=== PATIENT | female | born 1985 ===

== ENCOUNTER 2018-05-09 19:45 | Inpatient (IN) | payer MEDICAID ==
[2018-05-09 20:28] VITALS: BMI 41.8
[2018-05-09] MEDS ORDERED: Lactated Ringer's 1,000 ML IV ONE (20:37)
[2018-05-09] MEDS ORDERED: Oxytocin 30 UNIT 30 UNITS/500 ML BAG IV ONE (20:42)
[2018-05-09 21:50] LABS: BASO % 0.4 % (0.0-2.0); EOS # 0.1 K/uL (0.0-0.7); EOS % 0.6 % (0.0-4.0); HEMOGLOBIN 12.8 g/dL (12.0-16.0); LYMPH # 1.8 K/uL (1.0-4.3); LYMPH % 19.8 % (20.0-40.0); MEAN CELL VOLUME 87.1 fl (81.0-99.0); MEAN CORPUSCULAR HEMOGLOBIN 28.8 pg (27.0-31.0); MEAN CORPUSCULAR HGB CONC 33.1 g/dL (33.0-37.0); MEAN PLATELET VOLUME 11.2 fl (7.2-11.7); MONO # 0.6 K/uL (0.0-0.8); MONO % 6.5 % (0.0-10.0); NEUT # 6.8 K/uL (1.8-7.0); NEUT % 72.7 % (50.0-75.0); NRBC % 0.1 % (0.0-0.0); RBC 4.44 Mil/uL (3.80-5.20); RED CELL DISTRIBUTION WIDTH 14.6 % (11.5-14.5); WHITE BLOOD COUNT 9.3 K/uL (4.8-10.8)
[2018-05-09] MEDS ORDERED: Penicillin G 5 Million Unit Vial IVPB ONE (22:01)
[2018-05-09] MEDS: Lactated Ringer's 1,000 ML IV ONE (22:14)
[2018-05-09 23:50] LABS: PROTHROMBIN TIME 11.3 Seconds (9.8-13.1)
[2018-05-09 23:52] LABS: ALB/GLOB RATIO 0.9 (1.0-2.1); ALT/SGPT 34 U/L (9-52); AST/SGOT 47 U/L (14-36); BLOOD UREA NITROGEN 6 mg/dl (7-17); CALCIUM 9.5 mg/dL (8.4-10.2); GFR NON-AFRICAN AMERICAN > 60
[2018-05-09 23:53] LABS: PARTIAL THROMBOPLASTIN TIME 27.6 Seconds (25.6-37.1)
[2018-05-10] MEDS ORDERED: Penicillin G 5 Million Unit Vial IVPB ONE (02:10)
[2018-05-10] MEDS: Lactated Ringer's 1,000 ML IV ONE ×4 (07:47→19:19)
--- NOTE | 2018-05-10 11:22 | OBPN ---
Datetime: 05/10/2018 11:17 IP Procedures: Sterile Vag Exam IP Progress Plan: Continue present management; Augmentation; Anesthesia consult Contraction Comments Provider: irregular FHR - Baseline A Provider: 150s IP Progress Note Comment: Pt requesting epidural. Contact anesthesia. Plan to start pitocin augmen tation. FHT category I. Discussed plan with patient and all patient questions answered. Vital Signs Provider: Reviewed; Within Normal Limits FHR Category Provider Fetus A: Category I NICHD Variability Prov Fetus A: Moderate 6-25bpm Dilatation, Provider: 2 Effacement, Provider: 50 Station, Provider: -1 NICHD Decel Fetus A IP Provider: None Datetime: 05/09/2018 20:44 Presentation-Admit: Vertex NICHD Accel Fetus A IP Provider: [id number]
[2018-05-10] MEDS ORDERED: Fentanyl/Bupivacaine HCl 250 ML EPI ONE (11:28)
--- NOTE | 2018-05-10 17:09 | OBPN ---
Datetime: 05/10/2018 17:03 IP Procedures: Sterile Vag Exam IP Progress Plan: Augmentation Contraction Comments Provider: q2-3min FHR - Baseline A Provider: 150s IP Progress Note Comment: Pt without complaints. Start pitocin augmentation. FHT category I Discussed plan with patient and all patient questions answered. Vital Signs Provider: Reviewed; Within Normal Limits FHR Category Provider Fetus A: Category I NICHD Variability Prov Fetus A: Moderate 6-25bpm Dilatation, Provider: 6 Effacement, Provider: 100 Station, Provider: 0 NICHD Decel Fetus A IP Provider: None
[2018-05-10] MEDS ORDERED: Oxytocin 30 UNIT 30 UNITS/500 ML BAG IV ONE (17:20)
[2018-05-10] MEDS ORDERED: Lidocaine 1% Inj (20ml) ONE (18:46)
--- NOTE | 2018-05-10 20:41 | OBPN ---
Datetime: 05/10/2018 20:38 IP Procedures: Sterile Vag Exam IP Progress Plan: Continue present management; Augmentation Contraction Comments Provider: q2-3min FHR - Baseline A Provider: 150s IP Progress Note Comment: Patient without complaints. heart tracing with moderate baseline variability, short variable decelerations with good rec overy Plan to continue current management. Discussed plan with patient and all patient questions answered. Vital Signs Provider: Reviewed; Within Normal Limits NICHD Variability Prov Fetus A: Moderate 6-25bpm Dilatation, Provider: 6-7 Effacement, Provider: 100 Station, Provider: 0 NICHD Decel Fetus A IP Provider: Variable
[2018-05-10] MEDS ORDERED: Bupivacaine HCl 0.5% PF (30 ml) Inj ONE (21:46)
[2018-05-10] MEDS ORDERED: ceFAZolin IV 2 gm in Dextrose 2 GM/50 ML BAG IVPB ONE (22:40)
[2018-05-10] MEDS ORDERED: ePHEDrine 50 mg/ml Inj ONE (22:51)
[2018-05-10] MEDS ORDERED: Morphine 1 mg/ml preservative-free Inj(Duramorph) ONE (22:51)
[2018-05-10] MEDS ORDERED: Sodium Chloride 0.9% 10 ML IV ONE (22:51)
--- NOTE | 2018-05-10 22:58 | OBPN ---
Datetime: 05/10/2018 22:39 IP Progress Impression: Arrest of dilatation/descent IP Informed Consent Obtain: Section Delivery; Risks, Benefits and Alternatives Discussed IP Procedures: Sterile Vag Exam IP Progress Plan: Deliver- Section Contraction Comments Provider: q2-3min FHR - Baseline A Provider: 150s IP Progress Note Comment: Patient without complaints. Patient with arrest of dilatation. Seen with moderate baseline variability, small variable deceler ations with good recovery. Discussed options with patient and recommended delivery due to arrest of dilatation. Aft er discussion of risks, benefits, alternatives of procedure, patient consented for delivery . Anesthesia notified. Vital Signs Provider: Reviewed; Within Normal Limits NICHD Variability Prov Fetus A: Moderate 6-25bpm Dilatation, Provider: 6-7 Effacement, Provider: 100 Station, Provider: 0 NICHD Decel Fetus A IP Provider: Variable
[2018-05-10] MEDS ORDERED: Propofol 10 mg/ml Inj (20 ML) ONE (23:23)
[2018-05-10] MEDS ORDERED: Succinylcholine 200 mg/10 ml Inj IV ONE (23:25)
[2018-05-11] MEDS: OXYTOCIN/0.9 % NS 20 UNIT/1,000 ML BAG IV SCH ×2 (00:06→00:07)
[2018-05-11] MEDS ORDERED: Oxycodone/Acetaminophen 5/325 mg Tab PO PRN ×3 (00:21→04:17)
[2018-05-11] MEDS ORDERED: Lactated Ringer's 1,000 ML IV ONE ×2 (00:23→04:17)
[2018-05-11] MEDS ORDERED: Simethicone 80 mg Chewtab PO SCH (04:00)
[2018-05-11] MEDS ORDERED: OXYTOCIN/0.9 % NS 20 UNIT/1,000 ML BAG IV SCH (04:17)
[2018-05-11 06:26] LABS: HEMOGLOBIN 10.7 g/dL (12.0-16.0); MEAN CELL VOLUME 88.2 fl (81.0-99.0); MEAN CORPUSCULAR HGB CONC 32.9 g/dL (33.0-37.0); RBC 3.69 Mil/uL (3.80-5.20); RED CELL DISTRIBUTION WIDTH 14.4 % (11.5-14.5)
[2018-05-11] MEDS ORDERED: Enoxaparin 40 mg Syringe SC SCH ×2 (09:00)
[2018-05-11] MEDS ORDERED: Multivitamin With Minerals Tab PO SCH (09:00)
[2018-05-11] MEDS: Simethicone 80 mg Chewtab PO SCH ×3 (09:21→22:11)
[2018-05-11] MEDS: Multivitamin With Minerals Tab PO SCH (09:21)
[2018-05-11] MEDS: Enoxaparin 60 mg Syringe SC SCH (09:21)
[2018-05-11] MEDS: Oxycodone/Acetaminophen 5/325 mg Tab PO PRN ×2 (12:50→22:12)
[2018-05-12] MEDS: Simethicone 80 mg Chewtab PO SCH ×5 (04:30→21:14)
[2018-05-12] MEDS: Multivitamin With Minerals Tab PO SCH (09:25)
[2018-05-12] MEDS: Enoxaparin 60 mg Syringe SC SCH (09:26)
[2018-05-12] MEDS: Oxycodone/Acetaminophen 5/325 mg Tab PO PRN (14:50)
[2018-05-13] MEDS: Simethicone 80 mg Chewtab PO SCH ×2 (05:25→09:11)
[2018-05-13] MEDS: Oxycodone/Acetaminophen 5/325 mg Tab PO PRN (07:53)
[2018-05-13] MEDS: Enoxaparin 60 mg Syringe SC SCH (09:11)
[2018-05-13] MEDS: Multivitamin With Minerals Tab PO SCH (09:11)
--- NOTE | 2018-05-13 09:54 | OBPPN ---
Datetime: 05/12/2018 09:52 PP Pain Prov: Within normal limits PP Nausea Prov: Denies PP Flatus Prov: Yes PP Breasts Prov: Normal PP Heart Prov: Normal PP Lungs Prov: Normal PP Abdomen/Uterus Prov: Normal PP Lochia Prov: Normal PP Vulva/Perineum Prov: Normal PP CVA Tenderness Prov: Normal PP Extremities Prov: Normal PP Comments Phys Exam Prov: Incision clean, dry, intact. Abdomen soft, nontender, nondistended Uterus firm, below umbilicus No deep calf tenderness bilaterally. PP Impression Prov: Normal progression PP Plan Prov: Continue present management PP Progress Note Prov: Postoperative day #2 status post , patient recovering well Continue current management. Anticipate discharge home tomorrow IP PP Procedures: None Vital Signs Provider PP: Reviewed; Within Normal Limits
--- NOTE | 2018-05-13 10:02 | OBDS ---
DELIVERY PERSONNEL Delivery Doctor: Torrey Jose MD Director Employee Safety And Health: Layo Chavarria Anesthesiologist: Torrey Pina MD Resident: Dr. Boo PGY1 MATERNAL INFORMATION Delivery Anesthesia: Spinal Medications in Delivery: Pitocin 30 units in 500 mls, Pitocin 20 units in 1000 mls Estimated Blood Loss (ml): 800 Placenta Cultured: Yes Maternal Complications: None RN Comments: Compound presentation, left arm Provider Comments: Primary low flap transverse section via Pfannenstiel incision. Patient delivered viable with Apgars of 8 and 9 at one and 5 minutes respectively. Normal u terus, normal tubes and ovaries bilaterally. Estimated blood loss 800 mL Fluids 1200 mL lactated Ringer's Urine output 600 mL of clear urine No complications. LABOR SUMMARY EDC: 05/07/2018 00:00 No. Babies in Womb: 1 Attempted: No Labor Anesthesia: Epidural LABOR INFORMATION Reason for Induction: Postterm Onset of Labor: 05/10/2018 17:00 Cervical Ripening Agents: Cervidil Other Ripening Agents: Pt tolerated well. Oxytocin: Induction Group B Beta Strep: Positive Antibiotics # of Doses: 5 Antibiotics Time of Last Dose: 1900 Steroids Given: None Reason Steroids Not Administered: Not Applicable MEMBRANES Membranes Rupture Method: Artificial Rupture of Membranes: 05/10/2018 13:00 Length of Rupture (hrs): 10.43 Amniotic Fluid Color: Clear Amniotic Fluid Amount: Moderate Amniotic Fluid Odor: Normal STAGES OF LABOR Stage 3 hrs: 0 Stage 3 min: 1 Total Time in Labor hrs: 6 Total Time in Labor min: 27 CSECTION DELIVERY Primary Indication: Arrest of Dilatation CSection Urgency: Non Elective CSection Incidence: Primary Labor: Labor Elective: Nonelective CSection Incision: Lower Uterine Transverse BABY A INFORMATION Delivery Date/Time: 05/10/2018 23:26 Method of Delivery: Born in Route : No : N/A Forceps: N/A Vacuum Extraction: N/A Shoulder Dystocia : No SHOULDER DYSTOCIA BABY A Infant Delivery Date/Time: 05/10/2018 23:26 PRESENTATION/POSITION BABY A Presentation: Cephalic Cephalic Presentation: Vertex Breech Presentation: N/A PLACENTA INFORMATION BABY A Placenta Delivery Time : 05/10/2018 23:27 Placenta Method of Delivery: Manual Removal Placenta Status: Delivered SCORES BABY A Heart Rate 1 min: >100 bpm Resp Effort 1 min: Good Cry Reflex Irritability 1 min: Cough or Sneeze or Pulls Away Muscle Tone 1 min: Active Motion Color 1 min: Blue/Pale Resuscitation Effort 1 min: Tactile Stimulation SCORE 1 MIN: 8 Heart Rate 5 min: >100 bpm Resp Effort 5 min: Good Cry Reflex Irritability 5 min: Cough or Sneeze or Pulls Away Muscle Tone 5 min: Active Motion Color 5 min: Body [place], Extremities Blue Resuscitation Effort 5 min: N/A SCORE 5 MIN: 9 INFORMATION BABY A Gestational Age at Delivery: 40.3 Gestational Status: Post-term Outcome : Liveborn Condition : Stable Sex: Male IDENTIFICATION/MEDS BABY A ID Band Number: [id number] ID Band Location: Left Leg; Left Arm WEIGHT/LENGTH BABY A Infant Birthweight (gms): 4190 Weight (lb): 9 Weight (oz): 4 CORD INFORMATION BABY A No. Cord Vessels: 3 Nuchal Cord : N/A True Knot: 1 Cord Blood Taken: Yes Suction: Mouth; Nose ASSESSMENT BABY A Infant Complications: Multiple Variable Decels Physical Findings at Delivery: Within Normal Limits Infant Respirations: Appears Normal Estimator/ALS Called : No Transferred To: [facility]
--- NOTE | 2018-05-13 13:00 | OBPPN ---
Datetime: 05/13/2018 12:59 PP Pain Prov: Within normal limits PP Nausea Prov: Denies PP Flatus Prov: Yes PP Breasts Prov: Not Done PP Heart Prov: Not Done PP Lungs Prov: Not Done PP Abdomen/Uterus Prov: Normal PP Lochia Prov: Not Done PP CVA Tenderness Prov: Not Done PP Extremities Prov: Normal PP C/S Incision Prov: Normal PP Impression Prov: Normal progression PP Plan Prov: Discharge PP Progress Note Prov: Patient cleared for discharge Vital Signs Provider PP: Reviewed
--- NOTE | 2018-05-13 13:00 | OBDCSUM ---
Datetime: 05/13/2018 10:28 Discharged to, Provider: Home Follow up at, Provider: Doctor Disch Instr Activity: Normal activity Disch Instr Diet: Regular Discharge Instructions, Provider: Routine instructions given Discharge Diagnosis, Provider: Term Delivered Follow up in weeks, Provider: 1 week Disch Referrals: None Contraception discussed, Prov: Yes Disch Activity Restrictions: No exercising; No sexual activity; Nothing in vagina - [place], ronda love
[2018-05-13 18:20] VITALS: BP 112/71; PULSE 91; RESP 20; TEMP 98.7; O2SAT 99
--- NOTE | 2018-05-13 21:54 | OP ---
PROCEDURE DATE: 05/10/2018 PREOPERATIVE DIAGNOSIS: Arrest of dilation in active labor. POSTOPERATIVE DIAGNOSIS: Arrest of dilation in active labor. OPERATION PERFORMED: Primary low flap transverse section via Pfannenstiel incision. OPERATIVE FINDINGS: Viable infant with 's of 8 and 9 at one and five minutes respectively. Normal uterus, normal tubes and ovaries bilaterally. ESTIMATED BLOOD LOSS: 800 mL. FLUIDS: 1200 mL of lactated Ringer's. URINE OUTPUT: 600 mL of clear urine. SURGEON: Sammy Jose MD SINGING TEACHER: Dr. Romelia Isaac. ANESTHESIOLOGIST: Dr. Beck. COMPLICATIONS: None. DESCRIPTION OF PROCEDURE: The patient was taken to the operating room, where spinal anesthesia was found to be adequate. The patient was prepped and draped in normal sterile fashion in the dorsal supine position with leftward tilt. A Pfannenstiel skin incision was made with a scalpel. This was carried down through to the underlying layer of fascia with the scalpel. A midline defect was made in the fascial layer with the scalpel. The fascial incision was then extended bilaterally sharply with curved Hale scissors. The fascial layer was from the underlying rectus muscles both bluntly and sharply with curved Hale scissors. The rectus muscles were at the midline. The peritoneum was then identified, tented up with Katie clamps x2, entered sharply with Metzenbaum scissors. This peritoneal incision was then extended superiorly and inferiorly with good visualization of the urinary bladder. A bladder blade was inserted into the abdomen. The vesicouterine peritoneum was then identified, tented up with Katie clamps x2 and entered sharply with Metzenbaum scissors. This peritoneal incision was then extended superiorly and inferiorly with good visualization of the urinary bladder. Bladder blade was inserted into the abdomen. The vesicouterine peritoneum was then identified, tented up with Katie clamps x2 and entered sharply with Metzenbaum scissors. This peritoneal incision was then extended bilaterally with Metzenbaum scissors. The bladder flap was created digitally. The Skippack retractors were placed over the urinary bladder. The uterus was incised with a scalpel. The uterine incision was extended bilaterally bluntly. The 's head was delivered atraumatically. Nose and mouth were suctioned with bulb suction. The remainder of the was delivered without complication. The cord was clamped and cut. The was handed off to awaiting pediatricians. The placenta was removed manually. The uterus was cleared of all clots and debris. The uterine incision was repaired with 0 Vicryl in a running, locking fashion. A second layer of the same suture was used to imbricate the first to obtain excellent hemostasis. The abdomen and pelvis were irrigated with copious amounts of warm normal saline. Re-inspection of the uterine incision proved excellent hemostasis. All instruments were removed from the patient. The peritoneal layer was closed with a running stitch of 2-0 chromic. The rectus muscles were reapproximated at the midline with a running stitch of 2-0 chromic. The fascial layer was closed with a running stitch of 0 Vicryl. Subcutaneous tissue was closed with a running stitch of 3-0 plain. The skin was closed with a subcutaneous stitch of 3-0 Vicryl. The patient tolerated the procedure well. All sponge count, lap count and needle counts were correct x2. There were no complications. The patient was taken to the recovery room in awake and stable condition. Sammy Jose, MDDD: 05/13/2018 10:01:13
== END 2018-05-13 14:10 | disposition home or self-care (01) | DRG 371 ==
LOC: H.EROB2 19:45 → H.L&D 20:37 → H.OB/GYN 05-11 03:30
PROVIDERS: ADMIT Obstetrics & Gynecology Gynecology; ATTEND Obstetrics & Gynecology Gynecology
PROC: 4A1HXCZ Monitoring of Products of Conception, Cardiac Rate, External Approach (ICD-10-PCS; 2018-05-09)
PROC: 10D00Z1 Extraction of Products of Conception, Low, Open Approach (ICD-10-PCS; principal; 2018-05-10)
DX: O62.0 Primary inadequate contractions (principal); O76 Abnormality in fetal heart rate and rhythm complicating labor and delivery; Z3A.40 40 weeks gestation of pregnancy; Z37.0 Single live birth; O32.6XX0 Maternal care for compound presentation, not applicable or unspecified; O48.0 Post-term pregnancy